=== PATIENT | female | born 1985 | race Caucasian/White ===

== ENCOUNTER 2024-04-17 13:28 | Emergency (ER) | payer OTHER, MEDICARE, SELFPAY ==
[2024-04-17] VITALS (14 sets, daily range): BP systolic 137–190; BP diastolic 84–131; BMI 32.9
[2024-04-17 14:04] LABS: % Basophils 0.1 % (0-2); % Immature Granulocytes 0.4 % (0-0.5); % Lymphocytes 11.7 % (20.5-51.1); % Monocytes 2.5 % (1.7-9.3); % Neutrophils 85.3 % (42.2-75.2); Absolute Lymphocytes 0.8 10^3/uL (1.2-3.4); Absolute Monocytes 0.2 10^3/uL (0.1-0.6); Hematocrit 41.6 % (37.0-47.0); Hemoglobin 14.9 g/dL (12.0-16.0); Mean Corp Hgb Conc. 35.8 g/dL (33.0-37.0); Mean Corpuscular Hgb 29.6 pg (27.0-31.0); Mean Corpuscular Volume 82.7 fL (81.0-99.0); Mean Platelet Volume 10.6 fL (7.4-10.4); Nucleated Red Blood Cells % 0 %; Platelet Count 227 10^3/uL (130-400); Red Blood Cell Count 5.03 10^6/uL (4.20-5.40); Red Cell Dist. Width 11.9 % (11.5-14.5); White Blood Cell Count 7.1 10^3/uL (4.8-10.8)
[2024-04-17 14:26] LABS: ALT (SGPT) 26 U/L (0-35); AST (SGOT) 27 U/L (14-36); Albumin 5.2 g/dl (3.5-5.0); Alkaline Phosphatase 62 U/L (38-126); Blood Urea Nitrogen 9 mg/dl (7-17); Calcium 10.2 mg/dl (8.4-10.2); Carbon Dioxide 25 mmol/L (22-30); Chloride 99 mmol/L (98-107); Estimated Creatinine Clearance 113 ml/min; Glucose 110 mg/dl (70-99); Potassium 5.5 mmol/L (3.5-5.1); Sodium 134 mmol/L (135-145); Total Bilirubin 0.5 mg/dl (0.2-1.3); Total Protein 7.7 g/dl (6.3-8.2); eGFR > 60.00
[2024-04-17 14:29] LABS: Troponin I < 0.012 ng/ml
--- NOTE | 2024-04-17 15:14 | ED.GENMED ---
History of Present Illness
General
Chief Complaint: Blood Pressure Problem
Source: patient
Exam Limitations: none
Time Seen by Provider: 04/17/24 14:54
Nursing documentation reviewed up to this point in time: agreed with
History of Present Illness
History of Present Illness:
38-year-old female presents emergency room complaining of headache for the past 3 days, nausea vomiting diarrhea. She was seen at [facility] last night, given Reglan Benadryl and Decadron and discharged. She states her blood
pressure was elevated yesterday, but decreased when she got to the emergency department.
Past History
Past History
ED Past Medical History: HTN, Hypercholesterolemia and Other (Migraine, under evaluation for MS)
ED Past Surgical History: Appendectomy and Orthopedic (Right foot surgery)
Social History
Tobacco: Non-smoker
Alcohol: None
Drug: None
Review of Systems
Review of Systems
Allergies reviewed?: Yes
All Other Systems: Not applicable
Constitutional: Reports no symptoms
EENT: Reports no symptoms
Respiratory: Reports no symptoms
Cardiac: Reports no symptoms
ABD/GI: Reports nausea, vomiting and diarrhea
: Reports no symptoms
Musculoskeletal: Reports no symptoms
Skin: Reports no symptoms
Neurological: Reports headache
Endocrine: Reports no symptoms
Hematologic/Lymphatic: Reports no symptoms
Psychiatric: Reports no symptoms
Phy Exam
Physical Exam
Physical Exam:
Physical Exam
General: no apparent distress, not acutely ill
Neck: supple. no meningeal signs. normal posterior pharynx
Heart: s1/s2 regular rate and rhythm, no murmur. equal radial
pulses.
HEENT: Pupils equal round reactive to light, EOMI
Lungs: no acute respiratory distress. clear bilaterally
Abdomen: normal bowel sounds. not tender. no CVAT
Neuro: alert and oriented. no focal neurological deficits cranial nerves II through XII intact
Skin: no rash
Psychiatric: well kept. interactive and cooperative
Extremities: no edema. no calf tenderness. negative homans. good distal pulses
Course
Orders/Labs/Results
Orders:
Orders
04/17/24 13:34
EKG [Electrocardiogram (*1)] Urgent
Reason for Study: Vertigo / Dizzy
EKG- Treatment ONCE
04/17/24 13:46
Complete Blood Count/With Diff Urgent
Comprehensive Metabolic Panel Urgent
Magnesium Urgent
Comment: MAG ADDED ON BY FLOOR 3:15PM 04-17-24
Troponin I Urgent
04/17/24 15:14
Add On- LAB Urgent
Tests Added?: magnesium
04/17/24 15:46
Ketorolac [Toradol] 15 mg IV NOW STA
04/17/24 17:06
diazePAM [Valium Injection] 5 mg IV NOW STA
04/17/24 18:19
EKG [Electrocardiogram (*1)] Urgent
Reason for Study: Chest Pain
EKG- Treatment ONCE
04/17/24 18:28
Labetalol HCl [Trandate] 10 mg IV NOW STA
Abnormal Lab Results
04/17/24
13:46
MPV 10.6 H fL
(7.4-10.4)
Absolute Lymphs (auto) 0.8 L 10^3/uL
(1.2-3.4)
Neutrophils % 85.3 H %
(42.2-75.2)
Lymphocytes % 11.7 L %
(20.5-51.1)
Sodium 134 L mmol/L
(135-145)
Potassium 5.5 H mmol/L
(3.5-5.1)
Glucose 110 H mg/dl
(70-99)
Albumin 5.2 H g/dl
(3.5-5.0)
04/17/24 13:46
04/17/24 13:46
Vital Signs
Initial and Last Documented VS:
Initial Vital Signs
Temp Pulse Resp BP Pulse Ox
98.4 F 121 16 190/131 98
04/17/24 13:30 04/17/24 13:30 04/17/24 13:30 04/17/24 13:30 04/17/24 13:30
Last Documented Vital Signs
Temp Pulse Resp BP Pulse Ox
98.4 F 88 25 137/89 99
04/17/24 13:30 04/17/24 19:15 04/17/24 19:15 04/17/24 19:15 04/17/24 19:00
MDM/Problems Addressed
Differential Diagnosis Includes:
Hypertensive urgency, migraine
MDM/Problems Addressed:
38-year-old female with hypertension, headache. Blood pressure improved and headache improved after labetalol Valium and Toradol. Patient stable for discharge. Follow-up with primary care.
Chronic conditions affecting care: HTN
Acute Exacerbation and/or Progression of Chronic Illness: HTN
*Pulse Oximetry
Patient hypoxic: no
*EKG
Interpreted by ED Provider?: Yes
EKG Intrepretation Date: 04/17/24
EKG Intrepretation Time: 18:25
Interpretation: normal
Comparison EKG: no changes
Heart Rate: 97
Rate: normal
Rhythm: sinus
[place]: normal axis
Interval: normal interval
QRS Pattern: normal QRS
Ischemia: no ischemia
*[place]rell Operator Interpretation
Rate: normal
Interpretation: normal
Heart Rate: 95
Rhythm: sinus
*Critical Care Note
Total Time (30-74mins, 75-104mins- exclusive of procedures): 30
comment:
Critical care statement: A total of 30 minutes of critical care time was provided for this patient. This includes management of unstable vital signs, evaluation of the patient at bedside, reviewing the patient's pertinent medical records, discussion
with consultants, review of old EKGs and review of pertinent medical records. This time with separate from time utilized to perform the aforementioned documented procedures
Data Reviewed
Further Testing Considered But Not Given:
CT head not indicated, normal head CT yesterday.
Patient Management
Social determinants of health affecting care: Living situation
Escalation/DeEscalation of care consider admission/obs:
admit not indicated
ED Attending Note
-
Portions of this chart may have been created with voice recognition software.� Occasional wrong word or��sound alike� substitutions may have occurred due to the inherent limitations of voice recognition software.
Discharge Plan
Departure
Patient Disposition: Home (Routine Discharge)
Date of Disposition: 04/17/24
Time of Disposition: 19:34
Patient with high blood pressure during this ER visit?: Yes
Condition: Good
Discharge Problem:
Headache, Hypertension
Instructions: High Blood Pressure (DC), Headache, Adult ED
Prescriptions:
New
cyclobenzaprine 10 mg tablet
10 mg PO Q8H PRN (Reason: muscle spasm) Qty: 14 0RF
labetalol 100 mg tablet
100 mg PO BID Qty: 60 0RF
No Action
cephalexin 500 mg capsule
500 mg PO QID 7 Days Qty: 28 0RF
Referrals:
Simon Valentino CRNP [Family Provider] - Call in 1-3 days for appt
Interventions
Interventions:
*Risk Screen - Suicide Last Done: 04/17/24 13:30
*Neglect/Abuse Screening Last Done: 04/17/24 13:30
ED- Fall Risk Assessment Last Done: 04/17/24 13:30
ED- Cardiac Assessment Last Done: 04/17/24 15:15
ED- Neurological Assessment Last Done: 04/17/24 15:15
ED- Pulmonary Assessment Last Done: 04/17/24 15:15
Discharge Date and Time
Print Language: IRISH
[2024-04-17] MEDS: TORADOL 15 MG IV (16:10)
[2024-04-17] MEDS: VALIUM INJECTION 5 MG IV (17:22)
[2024-04-17] MEDS: TRANDATE 10 MG IV (18:39)
== END 2024-04-17 20:01 | disposition home or self-care (01) ==
LOC: EMR 13:28
PROVIDERS: EMERGENCY PHYSICIAN Emergency Medicine; FAMILY PHYSICIAN Nurse Practitioner Primary Care
DX: R11.2 Nausea with vomiting, unspecified (principal); R51.9 Headache, unspecified; R19.7 Diarrhea, unspecified; E78.00 Pure hypercholesterolemia, unspecified; I10 Essential (primary) hypertension; Z90.49 Acquired absence of other specified parts of digestive tract
CPT/HCPCS: 99283; 96374; 96375; 80053; 83735; 84484; 85025; 93005

== ENCOUNTER → 2024-06-04 16:38 | Outpatient (REF) | payer OTHER, MEDICARE, SELFPAY | LOC: CLAB 16:38 | PROVIDERS: ATTENDING PHYSICIAN Obstetrics & Gynecology | DX: D25.0 Submucous leiomyoma of uterus (principal) | CPT/HCPCS: 88305 ==

== ENCOUNTER 2025-05-22 06:21 | Day surgery (SDC) | payer OTHER, SELFPAY ==
[2025-05-22] VITALS (7 sets, daily range): BP systolic 107–128; BP diastolic 69–79; BMI 31.4
[2025-05-22] MEDS: NORMOSOL-R/PLASMALYTE-A 1000 IV (14:03)
[2025-05-22] MEDS: TORADOL 15 MG IV (14:04)
[2025-05-22] MEDS: TYLENOL 1000 MG PO (14:06)
[2025-05-22 14:19] LABS: Hematocrit 34.0 % (37.0-47.0); Hemoglobin 11.8 g/dL (12.0-16.0); Mean Corp Hgb Conc. 34.7 g/dL (33.0-37.0); Mean Corpuscular Volume 82.9 fL (81.0-99.0); Platelet Count 164 10^3/uL (130-400); Red Cell Dist. Width 12.1 % (11.5-14.5)
[2025-05-22] MEDS: ROXICODONE 10 MG PO (15:12)
[2025-05-22] MEDS: VIBRAMYCIN 270 MG IV (15:35)
== END 2025-05-22 17:53 | disposition home or self-care (01) ==
LOC: SDS 06:21
PROVIDERS: ATTENDING PHYSICIAN Obstetrics & Gynecology
DX: O03.4 Incomplete spontaneous abortion without complication (principal); O73.1 Retained portions of placenta and membranes, without hemorrhage
CPT/HCPCS: 59820; 85027; 88305